=== PATIENT | female | born 1995 ===

== ENCOUNTER 2024-04-04 16:12 | Outpatient (REF) | payer MEDICAID, SELFPAY ==
--- NOTE | 2024-04-04 12:00 | PAPFT_PTH ---
PATIENT: Leanne Hannah LOC: [facility] U#:[id number] AGE/SX: 28/F ROOM: RE04/04/[address]: Karina Horton MD : 1995 BED: DIS: 04/04/2024 SPEC #: [id number] RECD: 04/04/24 18:34 STATUS: ARTI REQ #: [id number] KALYANI: 04/04/24 12:[address]: Karina Horton DEPT: [facility] Cytology RECD BY: Bernadette White ENTERED: 04/04/24 18:34 SP TYPE: PAPFT OTHR DR: Unknown,Unknown Tissues: 1 - CX/ENDOCX FOR PAP SMEARS Procedures: PAP THIN PREP/[facility] Screening HPV DNA PROBE Comments: [id number] (HPV 16 & 18/45) (CHLAMYDIA/GC)
[2024-04-05 11:57] LABS: Chlamydia Result Negative (Negative); GC Result Negative (Negative)
== END 2024-04-04 16:13 | disposition home or self-care (01) ==
LOC: LBN 16:12
PROVIDERS: Visit Provider Obstetrics & Gynecology
DX: Z12.4 Encounter for screening for malignant neoplasm of cervix (principal)
CPT/HCPCS: 87491; 87591; 88142; 87624

== ENCOUNTER 2025-04-06 18:53 | Outpatient (REF) | payer BC, SELFPAY ==
[2025-04-06 21:12] LABS: Abs Immature Grans 0.02 10^3/uL (0.0-0.06); HCT 40.5 % (36.0-46.0); HGB 13.3 g/dL (11.2-15.7); Immature Grans % 0.2 %; MCH 28.9 pg (27.0-33.0); MCHC 32.8 % (32.0-36.0); MCV 88 fL (80-95); MPV 10.6 fL (8.0-11.0); Platelet Count 393 10^3/uL (130-400); RBC 4.61 10^6/uL (3.93-5.22); RDW 12.4 % (11.7-14.6); RDW-SD 39.9 fL; WBC 8.93 10^3/uL (4.4-10.8)
[2025-04-06 21:24] LABS: ALT 25 U/L (14-59); AST 18 U/L (15-37); Albumin 3.6 g/dL (3.4-5.0); Alkaline Phosphatase 62 U/L (46-116); Anion Gap 7.5 mmol/L (3-11); BUN 8 mg/dL (7-18); Bilirubin, Total 0.3 mg/dL (0.2-1.0); CO2 29.5 mmol/L (21.0-32.0); Calcium 9.0 mg/dL (8.5-10.1); Chloride 105 mmol/L (98-107); Estimated GFR 124.53 (mL/min/1.73m2); Glucose 98 mg/dL (74-106); Potassium 4.2 mmol/L (3.5-5.1); Sodium 142 mmol/L (136-145); Total Protein 7.0 g/dL (6.4-8.2)
[2025-04-09 10:58] LABS: Lyme Ab w Rflx to Lyme Confirm Negative (Negative)
[2025-04-10 14:40] LABS: B. miyamotoi PCR Negative (Negative); Babesia divergens/MO-1 Negative (Negative); Ehrlichia muris eauclairensis Negative (Negative)
== END 2025-04-06 18:54 | disposition home or self-care (01) ==
LOC: LBN 18:53
PROVIDERS: PCP Naturopath; Visit Provider Nurse Practitioner Family
DX: R53.83 Other fatigue (principal)
CPT/HCPCS: 80053; 87798; 85025; 86618